=== PATIENT | male | born 1960 | race Caucasian/White ===

== ENCOUNTER 2023-10-24 20:36 | Inpatient (IN) | payer BC, SELFPAY ==
--- NOTE | ~2023-10-24 | CT_ITS ---
Examination: CT GI bleed abdomen and pelvis without and with contrast. Clinical indications: Red blood per rectum. Correlation: CT abdomen and pelvis 2006. TECHNIQUE: 5 mm thin axial images of abdomen pelvis were obtained without and with IV however mL Omnipaque 350. To be delayed images were obtained through the abdomen and pelvis. This CT examination was performed using dose optimization technique as appropriate, variously including the following: Automated exposure control Adjustment of MA and/or KV according to patient size(this includes techniques or standardized protocols for targeted exams where dose is matched to indication/reason for exam; extremities or head. Use of iterative reconstruction techniques. FINDINGS: Lung bases: There is small hiatal hernia. Mild atelectatic changes seen in the right middle lobe. The lung bases are clear. Liver, ducts and gallbladder: The liver is homogeneous in density, normal size and contour. No focal lesion or intrahepatic ductal dilatation seen. The gallbladder has been surgically removed. Spleen: Unremarkable. Pancreas: Unremarkable. Adrenal glands: Unremarkable. Kidneys and ureter: Both kidney nephrograms are symmetrical in size and configuration. No radiopaque renal calculi or hydronephrosis seen. There is a nonenhancing 1.8 cm cyst lower pole right kidney. Bladder: Unremarkable. GI tract: There is diffuse colonic diverticulosis, scattered stool and gas without obstruction or diverticulitis. The small bowel loops are normal caliber. Appendix is normal caliber. There is no abnormal intraluminal contrast extravasation seen in the colon or small bowel loops to suspect bleed. No free air or free fluid seen. Abdominal wall: Unremarkable. Pelvis: There is mild enlarged prostate gland with central gland calcification. No abnormal pelvic or inguinal lymph nodes seen. Osseous structures: Mild degenerative disc changes with vacuum disc phenomena L5-S1 disc level. CT/CT gi bleed abd pel wo/w IVcon IMPRESSION: 1. No abnormal intraluminal contrast extravasation seen to suspect any GI bleed. 2. Diffuse colonic diverticulosis without diverticulitis. 3. Cholecystectomy changes. 4. Small hiatal hernia.
[2023-10-24 20:45] VITALS: BP 148/86; PULSE 85; RESP 18; TEMP 36.6; O2SAT 97; BMI 28.6
[2023-10-24 21:01] VITALS: BP 138/85; PULSE 86; RESP 16; TEMP 36.8; O2SAT 94
[2023-10-24 21:10] LABS: MANUAL DIFF FLAG NO
[2023-10-24 21:11] LABS: Basophils Percent Auto 0.5 % (0-2); Eosinophils Absolute Auto 0.1 X10*3/uL (0.0-0.4); Eosinophils Percent Auto 1.7 % (0-4); Hematocrit 46.3 % (42.0-52.0); Hemoglobin 16.1 g/dl (14.0-18.0); Imm Gran Abs Auto 0.04 X10*3/uL (0.00-0.03); Imm Gran Pct Auto 0.5 % (0.0-0.4); Lymphocytes Absolute Auto 2.4 X10*3/uL (1.2-4.9); Lymphocytes Percent Auto 28.9 % (20-40); Mean Corpuscular HGB Conc 34.8 g/dl (31.0-36.0); Mean Corpuscular Hemoglobin 30.9 pg (27.0-33.0); Mean Corpuscular Volume 88.9 fL (80.0-98.0); Mean Platelet Volume 8.5 fL (9.4-12.4); Monocytes Absolute Auto 0.7 X10*3/uL (0.1-1.2); Monocytes Percent Auto 8.1 % (2-11); Neutrophils Absolute Auto 4.9 x10*3/uL (2.0-8.3); Neutrophils Percent Auto 60.3 % (45-73); Platelet Count 180 X10*3/uL (160-400); Red Blood Count 5.21 X10*6/uL (4.60-5.80); Red Cell Distribution Width 12.1 % (11.0-16.0); White Blood Count 8.2 X10*3/uL (4.8-10.8)
--- NOTE | 2023-10-24 21:13 | PC.NURSE ---
Pt ca&ox4, no signs of distress 2/10 LLQ pain onset x1 hour. Pain aggravated by palpation Pt reports blood tinged when wiping and small amount of occult blood in the toilet. Pts family at bedside. Pts family reports pt was diagnosed with diverticulitis Familial hx of colon cancer (pts sister) Plan of care ongoing.
--- NOTE | 2023-10-24 21:24 | ED_ITS ---
HPI - GI Bleed General Chief complaint: GI Bleed Stated complaint: rectal bleeding,abd pain Time Seen by Provider: 10/24/23 21:21 Source: patient Mode of arrival: ambulatory Limitations: no limitations History of Present Illness HPI Narrative: 62-year-old male who presents emergency department for evaluation of bright red blood per rectum. The patient states he does have a history of hemorrhoids and had 3 hemorrhoidectomies. He states that he has been constipated recently and has been using MiraLax. He states that this evening he felt a wet sensation in his rectal area and when he wiped he noted bright red blood. He states that he is also developed pain in his lower abdomen which she describes as a hfbp-su-rcfasnrn dull ache. He does have a history of diverticulosis but no diverticulitis. Patient's symptoms started approximately 1-1/2 hours prior to coming to the emergency department. He states that sister who was 67 years old currently has colon cancer and is being treated. Patient does take diclofenac and aspirin. 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 Surgical history cholecystectomy, umbilical herni repair, hemorrhoidectomy x3. Social history: The patient denies tobacco use. He drinks alcohol once a week. He denies drug use. Social History Social History Smoked in Last 30 Days: No Use of substances other than those prescribed or required for medical reasons: No Advance Directives: No Advance Directives Information Provided: No Physical Exam 2 Vital Signs: Vital Signs: Last Vital Signs Temp 98.3 F 10/24/23 21:01 Pulse 86 10/24/23 21:01 Resp 16 10/24/23 21:01 BP 138/85 10/24/23 21:01 Pulse Ox 94 10/24/23 21:01 O2 Del Method Room Air 10/24/23 21:01 BMI result Body Mass Index 28.6 Vital signs were normal Exam: General: Awake, alert in no distress Head: Normocephalic, atraumatic EENT: PERRL, Lids normal, sclera normal, conjunctiva normal, nose normal , ears normal, throat without erythema or exudates Neck: Supple, no adenopathy Lung: breath sounds symmetric, no wheezing, rales or rhonchi Chest: symmetric movement, nontender Heart: regular rate and rhythm, normal S1, S2 no murmurs or rubs Abdomen: Soft, normoactive bowel sounds, mild to moderate right lower and left lower quadrant tenderness, no rebound, no voluntary or involuntary guarding Rectal: Dark red blood per rectum, no external hemorrhoids, no internal hemorrhoids on digital exam, no rectal masses on digital exam Back: no vertebral tenderness, no CVAT Extremities: no deformities, moves all extremities symmetrically Neuro: Awake, alert, oriented, normal speech, cranial nerves intact, moves all extremities symmetrically Psych: Pleasant, cooperative Medications Administered Discontinued Medications Generic Name Dose Route Start Last Admin Trade Name Freq PRN Reason Stop Dose Admin Sodium Chloride 1,000 mls @ 999 mls/hr 10/24/23 21:53 10/24/23 22:11 Ns IV 10/24/23 22:53 999 mls/hr .Q1H1M STA Administration Iohexol 100 ml 10/24/23 22:21 10/24/23 22:22 Iohexol 350 Mg/Ml 100 Ml Infus..Btl IV 10/24/23 22:22 80 ml ONCE ONE Administration Medical Decision Making Medical Decision Making MDM Narrative: 8o-year-old male with a history diabetes mellitus, brought the edge of cyst, stroke 14 years ago, diverticulosis, cholecystectomy, umbilical herniorrhaphy, hemorrhoidectomy who presents emergency department for evaluation of sudden onset rectal bleeding proximally 1-1/2 hours prior to coming to the emergency department and lower abdominal pain. Vital signs were normal. Exam did reveal lower abdominal tenderness and rectal exam did reveal dark red blood. Differential diagnosis: ?Includes but is not limited to diverticulitis, diverticular bleed, polyp bleed, AVM bleed, hemorrhoid bleed, colon cancer Following evaluation was ordered: CBC, CMP, liver panel, occult stool test, type and screen Patient was initially treated with the following: Normal saline x1 L Course: 00:12 My interpretation patient's laboratory evaluation is as follows: WBC normal 8200. H&H normal 16 and 46.3 with a normal platelet count of a 362938. BUN elevated 22 creatinine of 1.13. Bilirubin elevated 1.1, direct bilirubin normal 0.4. ALT elevated 44. Occult stool was positive. CT scan of the abdomen pelvis GI bleed protocol did not reveal any active bleeding but did reveal diverticulosis with no diverticulitis. Given the dark red blood on rectal exam I am concerned that the patient may have a significant lower GI bleed most likely secondary to diverticulosis. I did discuss the patient's presentation with the covering hospitalist, Dr. Stanton and the patient will be admitted for further management. The patient will have a repeat 4 hour H&H at 01:00 hours. Admission/Observation Consideration of admission/observation: Escalation of care including admission/observation considered Lab Data 10/24/23 20:52 10/24/23 20:52 Labs: Lab Results 10/24/23 10/24/23 Range/Units 20:52 22:05 WBC 8.2 (4.8-10.8) X10*3/uL RBC 5.21 (4.60-5.80) X10*6/uL Hgb 16.1 (14.0-18.0) g/dl Hct 46.3 (42.0-52.0) % MCV 88.9 (80.0-98.0) fL MCH 30.9 (27.0-33.0) pg MCHC 34.8 (31.0-36.0) g/dl RDW 12.1 (11.0-16.0) % Plt Count 180 (160-400) X10*3/uL MPV 8.5 L (9.4-12.4) fL Immature Gran % (Auto) 0.5 H (0.0-0.4) % Neut % (Auto) 60.3 (45-73) % Lymph % (Auto) 28.9 (20-40) % [place] % (Auto) 8.1 (2-11) % Eos % (Auto) 1.7 (0-4) % Baso % (Auto) 0.5 (0-2) % Lymph # (Auto) 2.4 (1.2-4.9) X10*3/uL [place] # (Auto) 0.7 (0.1-1.2) X10*3/uL Eos # (Auto) 0.1 (0.0-0.4) X10*3/uL Baso # (Auto) 0.0 (0.0-0.2) X10*3/uL Abs Immat Gran (auto) 0.04 H (0.00-0.03) X10*3/uL Absolute Neuts (auto) 4.9 (2.0-8.3) x10*3/uL Absolute Nucleated RBC 0.000 (0.0-0.012) X10*3/uL Nucleated RBC % (auto) 0.0 (0.0-0.2) /100WBC Sodium 139 (135-145) mmol/L Potassium 4.0 (3.3-5.1) mmol/L Chloride 107 (96-108) mmol/L Carbon Dioxide 23 (22-29) mmol/L Anion Gap 13 (12-20) BUN 22 H (9-16) mg/dL Creatinine 1.13 (0.5-1.4) mg/dL Estim Creat Clear Calc 78.6 Estimated GFR > 60 Random Glucose 101 (60-115) mg/dL Calcium 8.8 (8.4-10.2) mg/dL Total Bilirubin 1.1 H (0.0-1.0) mg/dL Direct Bilirubin 0.4 (0.0-0.5) mg/dL AST 24 (5-37) U/L ALT 44 H (0-40) U/L Alkaline Phosphatase 75 (39-117) U/L Total Protein 7.0 (6.5-8.0) g/dL Albumin 4.4 (3.5-5.0) g/dL Stool Occult Blood POSITIVE (NEGATIVE) Blood Type A Positive Antibody Screen NEGATIVE Radiology Impression Discussion of test interpretation with radiology: I have reviewed the radiologist's reading. Radiologist Impression: CT gi bleed abd pel wo/w IVcon IMPRESSION: 1. No abnormal intraluminal contrast extravasation seen to suspect any GI bleed. 2. Diffuse colonic diverticulosis without diverticulitis. 3. Cholecystectomy changes. 4. Small hiatal hernia. Dictated By: Ata John MD Independent Historian Clinical information obtained from an independent historian. History obtained from or confirmed by: Spouse Critical Care Time Critical Care Time Critical Care Time: Yes Total Critical Care Time: 35 Attestation: Critical Care: The patient was critically ill with a high probability of imminent or life threatening deterioration. I spent greater than 30 minutes of discontinuous time evaluating the patient,delivering critical care at the bedside, discussing and evaluating pertinent data with consultants. Critical care time does not include time spent performing separately billable procedures or teaching. Total time spent performing critical care was 35 minutes.
[2023-10-24 21:26] LABS: Alanine Aminotransferase 44 U/L (0-40); Albumin Level 4.4 g/dL (3.5-5.0); Alkaline Phosphatase 75 U/L (39-117); Anion Gap 13 (12-20); Aspartate Amino Transferase 24 U/L (5-37); Bilirubin Direct 0.4 mg/dL (0.0-0.5); Bilirubin Total 1.1 mg/dL (0.0-1.0); Blood Urea Nitrogen 22 mg/dL (9-16); Calcium 8.8 mg/dL (8.4-10.2); Carbon Dioxide 23 mmol/L (22-29); Chloride 107 mmol/L (96-108); Creatinine Clr Calc Pharmacy 78.6; Estimated Glomerular Filt Rate > 60; Glucose Random 101 mg/dL (60-115); Sodium 139 mmol/L (135-145)
[2023-10-24] MEDS: 0.9 % Sodium Chloride 1,000 ML 999 ML IV (22:11)
--- NOTE | 2023-10-24 22:14 | PC.NURSE ---
Pt with ct. Plan of care ongoing.
[2023-10-24] MEDS: iohexoL 350 MG/ML 100 ML INFUS..BTL IV (22:22)
[2023-10-24 22:25] LABS: OBS Int Ctl Valid YES; OBS1 POSITIVE (NEGATIVE)
--- NOTE | 2023-10-24 22:28 | PC.NURSE ---
Pt ambulated to the restroom.
--- NOTE | 2023-10-25 00:43 | PM.IMHP ---
History of Present Illness Date of Service: 10/25/23 Chief Complaint: Blood in stools This is a 62-year-old male with pertinent history of mood disorder, BPH, history of CVA, jsn-jhculsn-ovwwdsqfr diabetes mellitus who presents to the emergency department for evaluation of bright red blood per rectum. Patient states it started around 20:00 on the day of presentation. Patient had couple of episodes since. It was painless and he only noticed when he noticed that his undergarment was wet. Patient has had 3 hemorrhoidectomies in the past and the last one was 3 years ago. Does endorse that he has been constipated lately, no fever, chills, nausea, vomiting or abdominal discomfort. Patient states he has had a colonoscopy which revealed diverticulosis. His sister is 67 years old and has been diagnosed with colon cancer. No chest discomfort, palpitations, shortness of breath, changes in urinary habits. Patient is on NSAIDs. In the emergency department, stool occult blood positive. Review of Systems Constitutional: Constitutional: Reports no additional constitutional complaints Cardiovascular: Cardiovascular: Reports no additional cardiovascular complaints Respiratory: Respiratory: Reports no additional respiratory complaints Gastrointestinal: Gastrointestinal: Reports hematochezia Genitourinary: Genitourinary: Reports no additional male genitourinary complaints [facility] Medical History (Updated 10/25/23 @ 00:48 by Will Stanton MD) History of CVA (cerebrovascular accident) BPH (benign prostatic hyperplasia) Mood disorder Surgical History (Updated 10/25/23 @ 00:48 by Will Stanton MD) H/O hemorrhoidectomy Social History Smoked in Last 30 Days: No Use of substances other than those prescribed or required for medical reasons: No Advance Directives: No Advance Directives Information Provided: No Meds Allergies Allergy/AdvReac Type Severity Reaction Status Date / Time No Known Allergies Allergy Verified 10/24/23 20:44 Physical Exam Vital Signs and Narrative: Vital Signs: Last Vital Signs Temp 98.3 F 10/24/23 21:01 Pulse 86 10/24/23 21:01 Resp 16 10/24/23 21:01 BP 138/85 10/24/23 21:01 Pulse Ox 94 10/24/23 21:01 O2 Del Method Room Air 10/24/23 21:01 BMI result Body Mass Index 28.6 Results Labs 10/24/23 20:52 10/24/23 20:52 Labs: Laboratory Results - last 24 hr 10/24/23 10/24/23 20:52 22:05 MCV 88.9 MCH 30.9 MCHC 34.8 RDW 12.1 Plt Count 180 MPV 8.5 L Immature Gran % (Auto) 0.5 H Neut % (Auto) 60.3 Lymph % (Auto) 28.9 [place] % (Auto) 8.1 Eos % (Auto) 1.7 Baso % (Auto) 0.5 Lymph # (Auto) 2.4 [place] # (Auto) 0.7 Eos # (Auto) 0.1 Baso # (Auto) 0.0 Abs Immat Gran (auto) 0.04 H Absolute Neuts (auto) 4.9 Absolute Nucleated RBC 0.000 Nucleated RBC % (auto) 0.0 Anion Gap 13 Estim Creat Clear Calc 78.6 Estimated GFR > 60 Random Glucose 101 Calcium 8.8 Total Bilirubin 1.1 H Direct Bilirubin 0.4 AST 24 ALT 44 H Alkaline Phosphatase 75 Total Protein 7.0 Albumin 4.4 Stool Occult Blood POSITIVE Blood Type A Positive Antibody Screen NEGATIVE Imaging Radiologist's Impressions: Impressions Abdomen/Pelvis CT 10/24/23 22:47 IMPRESSION: 1. No abnormal intraluminal contrast extravasation seen to suspect any GI bleed. 2. Diffuse colonic diverticulosis without diverticulitis. 3. Cholecystectomy changes. 4. Small hiatal hernia. Assessment and Plan (1) Bright red blood per rectum: Status: Acute Plan This is a 62-year-old male with pertinent history of mood disorder, BPH, history of CVA, fen-gzojwlo-fugexgtff diabetes mellitus who presents to the emergency department for evaluation of bright red blood per rectum. #. Painless bright red blood per rectum: Will admit patient with cardiac monitoring. Resuscitated with IV crystalloids. Closely monitor H&H. Consulted Gastroenterology, appreciate assistance. Will keep patient NPO #. Mood disorder: Continue home mood stabilizers once no longer NPO #. History of CVA: Hold antiplatelet agent #. Sje-urfrjid-mxrooqcfz diabetes mellitus: Initiating Accu-Cheks with sliding scale insulin every 6 hours Med rec pending DVT prophylaxis: SCDs Full code Admit as inpatient and will require two night minimum hospital stay for close monitoring of hemodynamics, IV crystalloid resuscitation, close monitoring of H&H (as above), which is not possible in a lesser acute setting. Specialist consult pending Quality Stroke Does the patient have a stroke diagnosis?: No VTE Prior VTE?: No VTE Risk Level:: Medical - moderate - high VTE Device Contraindication: N/A - Device Ordered VTE Drug Contraindication: Treatment Not Indicated
--- OUTSIDE RECORDS SUMMARY | 2023-10-25 00:47 | XMS_ITS | Continuity of Care Document ---
Author Name Unknown Organization [facility] Address [address] [place] [address]- Care Team Providers Care Needle Loom Tender Name Role Phone Flo LAGUNAS MD, Travis Andres Primary Care Physician Encounter [facility] [place] Date(s): 06/29/23 - 07/29/23 [facility] [address] [place] [address]- Attending Physician: AdmJesús donahue Admitting Physician: Admtr, Ar8 Referring Physician: Admtr, Ar8 Allergies, Adverse Reactions, Alerts Substance Reaction Severity Status predniSONE hives Active Immunizations Given and Recorded Vaccine Date Status Refusal Reason influenza virus vaccine, inactivated 04/29/10 Give n Hepatitis A-Hepatitis B Vaccine 1 04/29/10 Given Hepatitis A-Hepatitis B Vaccine 2 10/22/09 Given Hepatitis A-Hepatitis B Vaccine 3 09/24/09 Given tetanus/diphtheria/pertussis, acel(Tdap) 09/24/09 Given 1Admin Note: twinrix #3 2Admin Note: twimrix #2 3Admin Note: twinrix #1 Medications Albuterol 0 Refills, Maintenance Start Date: 09/24/09 Status: Ordered Amoxicillin By Mouth, Maintenance, 06/29/23 10:28:00 EST Start Date: 06/29/23 Status: Ordered aspirin 81 mg oral tablet, chewable 81 mg, 1, tablet, Daily, Refills 0, Maintenance, 10/10/20 16:19:00 EDT, Partial fill upon patient request if the prescription is for a schedule II opioid drug. Start Date: 10/10/20 Status: Ordered diclofenac sodium 50 mg oral delayed release tablet 1 tablet = 50 mg, By Mouth, 3 times a day, 0 Refills, Maintenance, 10/10/20 16:17:00 EDT, Partial fill upon patient request if the prescription is for a schedule II opioid drug. Start Date: 10/10/20 Status: Ordered Flovent HFA Inhalation, 2 times a day, 0 Refills, Maintenance Start Date: 09/24/09 Status: Ordered naproxen 500 mg oral tablet 1 tablet = 500 mg, By Mouth, 2 times a day, # 60 tablet, 0 Refills, Maintenance, 04/14/22 8:18:00 EDT, Tablet, Partial fill upon patient request if the prescription is for a schedule II opioid drug. Start Date: 04/14/22 Status: Ordered oxyCODONE 5 mg oral tablet See Instructions, PRN, 1-2 tablet By Mouth Every 4-6 hours, Refills 0, Tot. Refills 0, Maintenance,as needed for pain, 04/14/22 8:18:00 EDT, Instructions Replace Required Details, Partial fill upon patient request if the prescription is for a schedu... Start Date: 04/14/22 Status: Ordered sertraline 50 mg oral tablet 1 tablet = 50 mg, By Mouth, Daily, 0 Refills, Maintenance, 10/10/20 16:16:00 EDT, Partial fill uponpatient request if the prescription is for a schedule II opioid drug. Start Date: 10/10/20 Status: Ordered tamsulosin 0.4 mg oral capsule 0.4 mg, 1, capsule, By Mouth, Daily, Refills 0, Maintenance, 10/10/20 16:18:00 EDT, Partial fill upon patient request if the prescription is for a schedule II opioid drug. Start Date: 10/10/20 Status: Ordered Testosterone 0 Refills, Maintenance, 10/10/20 16:20:00 EDT, Partial fill upon patient request if the prescription is for a schedule II opioid drug. Start Date: 10/10/20 Status: Ordered Problem List Condition Confirmation Course Effective Dates Status Health St atus Informant Obese class I Confirmed Active Patient Care team information Care Team Personnel Name: Travis Rossi III, MD Position: Reference Physician Member Role: PCP Address: Address: [address] [place] [id number]- Care Team Related Persons Name: MICKEY CONNOLLY Address: home [address] [place] [address]
--- OUTSIDE RECORDS SUMMARY | 2023-10-25 00:47 | XMS_ITS | Continuity of Care Document ---
Author Name Unknown Organization [facility] Address [address] [place] [address] [address] [place] [address]- Care Team Providers Care Ep Tech Name Role Phone Travis Rossi III, MD Primary Care Physician Encounter [facility] [place] Date(s): 11/26/20 - 12/26/[address] [place] [address]- Attending Physician: Jesús Townsend Admitting Physician: AdmtrJesús Referring Physician: Admtr, Ar8 Allergies, Adverse Reactions, [...] Refills, Maintenance Start Date: 09/24/09 Status: Ordered aspirin 81 mg oral tablet, chewable 81 mg, 1, tablet, Daily, Refills 0, Maintenance, 10/10/20 16:19:00 EDT, Partial fill upon patient request if the prescription is for a schedule II opioid drug. Start Date: 10/10/20 Status: Ordered chloroquine 500 mg oral tablet 1 tablet = 500 mg, By Mouth, Every week, begin1 week prior to travel in [facility] area, take weeklyand for 4 weeks after leaving [facility] area, # 6 tablet, 0 Refills, Maintenance Start Date: 09/24/09 Status: Ordered Cipro 500 mg oral tablet 1 tablet = 500 mg, By Mouth, Every 12 hours, for severe diarrhea, # 6 tablet, 0 Refills, Maintenance Start Date: 09/24/09 Stop Date: 09/27/09 Status: Ordered Colace sodium 100 mg oral capsule 100 mg, 1, capsule, By Mouth, 2 times a day, PRN, # 60 capsule, Refills 6, Tot. Refills 6, Maintenance, for constipation, 10/16/20 10:57:00 EDT, Route to Pharmacy Electronically, [id number], Partial fill upon patient request if the pr... Start Date: 10/16/20 Stop Date: 05/14/21 Status: Ordered diclofenac sodium 50 mg oral delayed release tablet 1 tablet = 50 mg, By Mouth, 3 times a day, 0 Refills, Maintenance, 10/10/20 16:17:00 EDT, Partial fill upon patient request if the prescription is for a schedule II opioid drug. Start Date: 10/10/20 Status: Ordered Flovent HFA Inhalation, 2 times a day, 0 Refills, Maintenance Start Date: 09/24/09 Status: Ordered Cari Move Free 0 Refills, Maintenance, 10/10/20 16:18:00 EDT, Partial fill upon patient request if the prescription is for a schedule II opioid drug. Start Date: 10/10/20 Status: Ordered sertraline 50 mg oral tablet [...] opioid drug. Start Date: 10/10/20 Status: Ordered Valium 5 mg oral tablet 5 mg, 1, tablet, By Mouth, Every 8 hours, PRN, 1 TABLET EVERY 8 HOURS FOR ANAL SPASM DO NOT TAKE ATTHE SAME TIME OXYCODONE, # 42 tablet, Refills 0, Tot. Refills 0, Maintenance, Spasm, 10/16/20 10:57:00 EDT, Route to Pharmacy Electronically, [facility]... Start Date: 10/16/20 Stop Date: 10/30/20 Status: Ordered
--- OUTSIDE RECORDS SUMMARY | 2023-10-25 00:47 | XMS_ITS | Continuity of Care Document ---
Author Name Unknown Organization [facility] Address [address] [place] [address] [address] [place] [address]- Care Team Providers Care Radio Technician Name Role Phone Flo LAGUNAS MD, Travis Andres Primary Care Physician [phone] Encounter [facility] [place] Date(s): 08/21/20 - 09/26/[address] [place] [address]- Attending Physician: Denise Ybarra MD Referring Physician: Travis Rossi III, MD Allergies, Adverse Reactions, Alerts Substance Reaction Severity [...] Refills, Maintenance Start Date: 09/24/09 Status: Ordered chloroquine 500 mg oral tablet 1 tablet = 500 mg, By Mouth, Every week, begin1 week prior to travel [place] [facility], take weeklyand for [address] [facility], # 6 tablet, 0 Refills, Maintenance Start Date: 09/24/09 Status: Ordered Cipro 500 mg oral tablet 1 tablet = 500 mg, By Mouth, Every 12 hours, for severe diarrhea, # 6 tablet, 0 Refills, Maintenance Start Date: 09/24/09 Stop Date: 09/27/09 Status: Ordered Flovent HFA Inhalation, 2 times a day, 0 Refills, Maintenance Start Date: 09/24/09 Status: Ordered
--- OUTSIDE RECORDS SUMMARY | 2023-10-25 00:47 | XMS_ITS | Continuity of Care Document ---
Author Name Unknown Organization [facility] Address [address] [place] [address] [address] [place] [address]- Care Team Providers Care Sales Operations Consultant Name Role Phone Flo LAGUNAS MD, Travis Andres Primary Care Physician Encounter [facility] [place] [facility] [id number] Date(s): 10/25/20 - 01/12/[address] [place] [address]- Attending Physician: Denise Ybarra MD Allergies, Adverse Reactions, Alerts Substance Reaction [...] week, begin1 week prior [place], take weeklyand for 4 [place] after [place], # 6 tablet, 0 Refills, Maintenance [...] 10/16/20 10:57:00 EDT, Route to Pharmacy Electronically, [facility][id number], Partial fill upon patient request if the [...]
--- OUTSIDE RECORDS SUMMARY | 2023-10-25 00:47 | XMS_ITS | Continuity of Care Document ---
Author Name Unknown Organization [facility] Address [address] [place] [address] [address] [place] [address]- Care Team Providers Care Rn Staff Name Role Phone Travis Rossi III, MD Primary Care Physician [phone] [place] [facility] Date(s): 08/21/20 - 08/28/[address] [place], [place] [address] Encounter Diagnosis Weyhmpi-bl-[id number](Discharge Diagnosis) - 08/21/20 Attending Physician: Driss GOMEZ, Liudmila Andres Referring Physician: Travis Rossi III, MD Allergies, [...] week, begin1 [place] to [place] [place], take weeklyand for [address] [facility] area, # 6 tablet, 0 Refills, Maintenance Start Date: 09/24/09 Status: Ordered Cipro 500 mg oral tablet 1 tablet = 500 mg, By Mouth, Every 12 hours, for severe diarrhea, # 6 tablet, 0 Refills, Maintenance Start Date: 09/24/09 Stop Date: 09/27/09 Status: Ordered Flovent HFA Inhalation, 2 times a day, 0 Refills, Maintenance Start Date: 09/24/09 Status: Ordered Problem List Diagnosis Diagnosis Type Effective Dates Health Status Cl inical Service Informant Sjzrixe-yt-[id number] Discharge Diagnosis 08/21/20
--- OUTSIDE RECORDS SUMMARY | 2023-10-25 00:47 | XMS_ITS | Continuity of Care Document ---
Author Name Unknown Organization [facility] ter Address [address] [place] [address]- Care Team Providers Care Channel Marketing Manager Name Role Phone Flo LAGUNAS MD, Travis Andres Primary Care Physician Encounter [facility] Date(s): 10/16/20 - 10/16/[address] [address]- Discharge Disposition: A-D/C Home Attending Physician: Denise Ybarra MD Admitting Physician: Denise Ybarra MD Referring Physician: Denise Ybarra MD Allergies, Adverse Reactions, [...] week, begin1 week prior to travel in [facility] area, take weeklyand for 4 weeks after leaving [facility] area, # 6 tablet, 0 Refills, [...] 10/16/20 10:57:00 EDT, Route to Pharmacy Electronically, [facility][id number], Partial fill upon patient request if the [...] Refills, Maintenance Start Date: 09/24/09 Status: Ordered oxyCODONE 5 mg oral tablet 5 mg, 1, tablet, By Mouth, Every 6 hours, PRN, for 7 days, # 28 tablet, Refills 0, Tot. Refills 0, Acute 10/23/20 10:57:00 EDT, post op,pain, moderate, 10/16/20 10:57:00 EDT, Route to Pharmacy Electronically, [facility] #[id number], Partial fill... Start Date: 10/16/20 Stop Date: 10/23/20 Status: Ordered Cari Move Free 0 Refills, [...] 10/16/20 10:57:00 EDT, Route to Pharmacy Electronically, [facility] Start Date: 10/16/20 Stop Date: 10/30/20 Status: Ordered Vital Signs Most recent to oldest [Reference Range]: 1 2 3 Height 175 cm (10/16/20 10:07 AM) 175 cm (10/10/20 4:57 PM) Weight 94.9 kg (10/16/20 10:07 AM) 93 kg (10/10/20 4:57 PM) Oxygen Saturation [94-100 %] 100 % (10/16/20 12:15 PM) 100 % (10/16/20 11:45 AM) 99 % (10/16/20 11:30 AM) Pulse Rate [55-90 bpm] 76 bpm (10/16/20 10:07 AM) Body Mass Index [18.5-24.99] 30.99 *>HHI* (10/16/20 10:07 AM) 30.37 *>HHI* (10/10/20 4:57 PM) Blood Pressure [90-138/55-84 mm Hg] 143/79mm Hg *H* (10/16/20 11:45 AM) 137/94mm Hg (10/16/20 11:30 AM) 153/100mm Hg *H* (10/16/20 11:15 AM) Respiratory Rate [16-30 br/min] 15 br/min *L* (10/16/20 11:45 AM) 15 br/min *L* (10/16/20 11:30 AM) 20 br/min (10/16/20 11:15 AM) Temperature [96.8-100.4 DegF] 97.2 DegF (10/16/20 11:07 AM) 98 DegF (10/16/20 10:07 AM) Liters per Minute 4 L/min (10/16/20 11:07 AM) Mode of Delivery (Oxygen) Room air (10/16/20 12:15 PM) Room air (10/16/20 11:45 AM) Room air (10/16/20 11:15 AM) Blood pressure sites Arm, right (10/16/20 10:07 AM) Temperature Route Temporal (10/16/20 11:07 AM) Temporal (10/16/20 10:07 AM) Dry Weight 94.9 kg (10/16/20 10:07 AM) 93 kg (10/10/20 4:57 PM) Weight Obtained Via Standing scale (10/16/20 10:07 AM) Patient/family stated (10/10/20 4:57 PM) Dry Weight Obtained Via Standing scale (10/16/20 10:07 AM) Patient/family stated (10/10/20 4:57 PM)
--- OUTSIDE RECORDS SUMMARY | 2023-10-25 00:47 | XMS_ITS | Continuity of Care Document ---
Author Name Unknown Organization [facility] ter Address [address] [place] [address]- Care Team Providers Care Barratte Operator Name Role Phone Travis Rossi III, MD Primary Care Physician [phone] [place] [facility] [place] 03/11/21 - 03/11/[address] [address]- Discharge Disposition: A-D/C Walkout Attending Physician: Not on Staff, Attending MD Admitting Physician: Not on Staff, Admitting MD Referring Physician: Not on Staff, Referring MD Allergies, Adverse Reactions, Alerts Substance Reaction [...] week, begin1 week prior to travel in [place] area, take weeklyand for 4 weeks after leaving [place] [place], # 6 tablet, 0 Refills, Maintenance [...] 10/16/20 10:57:00 EDT, [id number], Partial fill upon patient request if the [...] Date: 10/16/20 Stop Date: 10/30/20 Status: Ordered Results Radiology Reports * Exam Date Time Procedure Performing Provider Status 03/11/21 2:52 PM Chest Portable Kibe , Tanisha; Auth (Ve rified) Notes: (Chest Portable) Reason For Exam: Chest Pain;Other: RESULT: Chest Portable Chest Portable Hx of Present Illness: dx with pna yesterday by PCP, given abx, felt worse this am was tested for covid and it was positive, nasal congestion, fever Reason: Chest Pain COMPARISON: None. FINDINGS: LINES AND TUBES: None. LUNGS AND PLEURA: No focal infiltrate. No pleural effusion. No pneumothorax. HEART, MEDIASTINUM AND CHELA: Heart is normal in size. Normal upper mediastinal and hilar contour. BONES AND SOFT TISSUES: No acute abnormality. IMPRESSION: Unremarkable. I have personally reviewed the images and I agree with this report. WSN: [id number] Ordering Physician: Pravin De La Rosa Dictated By: Alfredo Givens DO Dictated Date/Time: 03/11/21 4:04 pm Reviewed By: Lavell Mazariegos MD Signed By: Lavell Mazariegos MD Signed Date/Time: 03/11/21 4:09 pm Transcribed By: ALISON Transcribed Date/Time: 03/11/21 3:05 pm Vital Signs Most recent to oldest [Reference Range]: 1 2 Oxygen Saturation [94-100 %] 99 % (03/11/21 12:50 PM) Pulse Rate [55-90 bpm] 83 bpm (03/11/21 12:50 PM) Blood Pressure [90-138/55-84 mm Hg] 138/ 74mm Hg (03/11/21 12:50 PM) Respiratory Rate [16-30 br/min] 18 br/mi n (03/11/21 12:50 PM) Temperature [96.8-100.4 DegF] 99.5 DegF (03/11/21 1:41 PM) 100.1 DegF (03/11/21 12:50 PM) Mode of Delivery (Oxygen) Room air (03/11/21 12:50 PM) Blood pressure sites Arm, left (03/11/21 12:50 PM) Temperature Route Oral (03/11/21 1:41 PM) Oral (03/11/21 12:50 PM)
--- OUTSIDE RECORDS SUMMARY | 2023-10-25 00:47 | XMS_ITS | Continuity of Care Document ---
Author Name Unknown Organization [facility] Address [address] [place] [address] [address] [place] [address]- Care Team Providers Care Music Professor Name Role Phone Travis Rossi III, MD Primary Care Physician [phone] Encounter [facility] Date(s): 08/10/20 - 09/09/20 [facility] [address] [place], [place] [address] Allergies, Adverse Reactions, Alerts Substance Reaction Severity [...] week, begin1 week prior to travel in [facility], take weeklyand for 4 weeks after leaving [facility] [place], # 6 tablet, 0 Refills, [...]
--- OUTSIDE RECORDS SUMMARY | 2023-10-25 00:47 | XMS_ITS | Continuity of Care Document ---
Author Name Unknown Organization [facility] Address [address] [place] [address]- Care Team Providers Care Director Of Collections Name Role Phone Travis Rossi III, MD Primary Care Physician Encounter [facility] Date(s): 06/29/23 - 07/06/23 [facility] [place] [address]- Encounter Diagnosis Cough(Discharge Diagnosis) - 06/29/23 Bulla of lung(Discharge Diagnosis) - 06/29/23 Attending Physician: Rebeka Rodriguez MD Referring Physician: Travis Rossi III, MD [...] atus Informant Obese class I Confirmed Active Diagnosis Diagnosis Type Effective Dates Health Status Cl inical Service Informant Cough Discharge Diagnosis 06/29/23 Bulla of lung Discharge Diagnosis 06/29/23 Vital Signs Most recent to oldest [Reference Range]: 1 Height 175.26 cm (06/29/23 10:24 AM) Oxygen Saturation [94-100 %] 100 % (06/29/23 10:24 AM) Pulse Rate [55-90 bpm] 66 bpm (06/29/23 10:24 AM) Blood Pressure [90-138/55-84 mm Hg] 150/ 81mm Hg *H* (06/29/23 10:24 AM) Respiratory Rate [16-30 br/min] 24 br/mi n (06/29/23 10:24 AM) Temperature [96.8-100.4 DegF] 97.7 DegF (06/29/23 10:24 AM) Mode of Delivery (Oxygen) Room air (06/29/23 10:24 AM) Blood pressure sites Arm, left (06/29/23 10:24 AM) Temperature Route Temporal (06/29/23 10:24 AM) Note * Christian Weaver: PERFORM, SIGN, VERIFY Event Display: Patient Education/Instruction Authored Date: [id number] [facility] *[facility] Clinical Summary Name BRITTANY CONNOLLY Age 62 Years 1960 PCP Flo LAGUNAS MD, Travis Andres PCP Visit Date 06/29/2023 09:31:00 Additional Instructions: Scheduled Appointments?? Future Appointments ?No Future Appointments Scheduled Follow-Up Instructions ?? Diagnosis Emphysema, unspecified; Cough, unspecified Medications: Please continue your medications until treatment is completed or stopped by your provider. Discuss any questions related to medications with your provider. New Medications [facility] #[id number], [address] [place] [phone], [phone] PredniSONE (predniSONE 20 mg oral tablet) 2 tab(s) Oral Daily for 5 Days. Refills: 0. Next Dose: Medications to Continue with No Changes These medications were not printed or sent to your pharmacy Albuterol Next Dose: Amoxicillin Oral. Next Dose: Aspirin (aspirin 81 mg oral tablet, chewable) 1 tab(s) Daily. Next Dose: Diclofenac (diclofenac sodium 50 mg oral delayed release tablet) 1 tab(s) Oral 3 times a day. Next Dose: Fluticasone (Flovent HFA) Inhalation twice a day. Next Dose: Naproxen (naproxen 500 mg oral tablet) 1 tab(s) Oral twice a day. Next Dose: Oxycodone (oxyCODONE 5 mg oral tablet) 1-2 tablet By Mouth Every 4-6 hours; as needed as needed forpain. Next Dose: Sertraline (sertraline 50 mg oral tablet) 1 tab(s) Oral Daily. Next Dose: Tamsulosin (tamsulosin 0.4 mg oral capsule) 1 capsule Oral Daily. Next Dose: Testosterone Next Dose: Allergy Info:?? predniSONE Medications Given This Visit Future Orders ?No future orders Vital Signs Height 175.26 cm Weight BMI Blood Pressure 150 mm Hg/81 mm Hg Temperature 97.7 DegF Pulse Rate 66 bpm Respiratory Rate 24 br/min 02 Sat Mode of Delivery 100 %/Room air You can now view a summary of your hospital visit from the comfort of your home through a free online portal called [employer]. [employer] is a website that allows you to securely view your medical information including discharge summary, medications and follow-up visits. ??You can alsosend a secure electronic message to your doctor???s office to request appointments, renew medications or just ask a question. You can enroll at [email or web address] or register during your next office visit. Disclaimer:?? The information provided is of a general nature and is intended to be used in conjunction with the recommendations and advice of your health care practitioner. ??Every effort has been made to ensure that the information provided is accurate and complete at the time it is provided to you however, as your needs change, or, as new ??information becomes available, different or additional instructions may be required. If you have questions, please consult with your primary care provider or pharmacist, as appropriate. ??This information is not intended to serve as substitution for assessment and evaluation by a qualified health care provider. If you do not have a primary care provider, you may find a [facility] provider by calling [facility] [employer] at [phone]. [facility], in keeping with [facility] guidance, no longer requires face masks for staff, patientsor visitors in most situations. Similar to time spent indoors at other locations, there is the chance that you were exposed to respiratory viruses during your time with us (such as flu or COVID-19).? If you develop symptoms concerning for a viral respiratory infection, please seek testing (and treatment if indicated) from your medical provider or home test kit. For information about the plan of care including goals and instructions for your diagnosis, please see the patient education orders section of this document. Patient Education Materials?? The content of this educational material or handout may have been modified, supplemented, or adapted from its original content and format to support your individualized medical care. Patient Care team information Care Team Personnel Name: Flo LAGUNAS MD, Travis Andres Position: Reference Physician Member Role: PCP Address: Address: [address] [place] [address]- Care Team Related Persons Name: MICKEY CONNOLLY Address: [address] [place] [address]
--- OUTSIDE RECORDS SUMMARY | 2023-10-25 00:47 | XMS_ITS | Continuity of Care Document ---
Author Name Unknown Organization [facility] Address [address] [place] [address] [address] [place] [address]- Care Team Providers Care Automatic Line Set Up Mechanic Name Role Phone Flo LAGUNAS MD, Travis Andres Primary Care Physician [phone] Encounter [facility] [id number] Date(s): 09/13/20 - 12/19/[address] [place] [address]- Attending Physician: Denise Ybarra MD Allergies, Adverse [...] 10/16/20 10:57:00 EDT, Route to Pharmacy Electronically, [facility][id number], Partial fill upon patient request if the [...]
--- OUTSIDE RECORDS SUMMARY | 2023-10-25 00:47 | XMS_ITS | Continuity of Care Document ---
Author Name Unknown Organization [facility] Address [address] [place] [address] [address] [place] [address]- Care Team Providers Care Warehouse And Receiving Supervisor Name Role Phone Travis Rossi III, MD Primary Care Physician [phone] [place] [facility] [id number] Date(s): 11/26/20 - 12/03/[address] [place] [address]- Encounter Diagnosis Chronic anal fissure(Discharge Diagnosis) - 11/26/20 Attending Physician: Denise Ybarra MD Referring Physician: [...] week, begin1 week prior to travel in [facility] area, take weeklyand for 4 weeks after leaving [facility] area, # 6 tablet, 0 Refills, Maintenance Start Date: 3/1/10 Status: Ordered Cipro 500 mg oral tablet [...] 10/16/20 10:57:00 EDT, Route to Pharmacy Electronically, [facility][id number], Partial fill upon patient request if the [...] Date: 10/16/20 Stop Date: 10/30/20 Status: Ordered Problem List Diagnosis Diagnosis Type Effective Dates Health Status Cl inical Service Informant Chronic anal fissure Discharge Diagnosis 11/26/20 Vital Signs Most recent to oldest [Reference Range]: 1 Height 175 cm (11/26/20 10:27 AM) Weight 98.6 kg (11/26/20 10:27 AM) Pulse Rate [55-90 bpm] 68 bpm (11/26/20 10:27 AM) Body Mass Index [18.5-24.99] 32.2 *>HHI* (11/26/20 10:27 AM) Blood Pressure [90-138/55-84 mm Hg] 135/ 86mm Hg (11/26/20 10:27 AM) Temperature [96.8-100.4 DegF] 98.2 DegF (11/26/20 10:27 AM) Blood pressure sites Arm, right (11/26/20 10:27 AM) Temperature Route Temporal (11/26/20 10:27 AM)
--- OUTSIDE RECORDS SUMMARY | 2023-10-25 00:47 | XMS_ITS | Continuity of Care Document ---
Author Name Unknown Organization [facility] Address [address] [place] [address] [address] [place] [address]- Care Team Providers Care French Lecturer Name Role Phone Flo LAGUNAS MD, Travis Andres Primary Care Physician [place] [facility] Date(s): 08/27/20 - 09/03/20 [facility] [address] [place], [place] [address] Attending Physician: Denise Ybarra MD Allergies, Adverse [...] week, begin1 week prior to travel in [facility], take weeklyand for 4 weeks after leaving [facility], # 6 tablet, 0 Refills, Maintenance [...]
[2023-10-25 01:10] LABS: Hematocrit 41.8 % (42.0-52.0); Hemoglobin 14.9 g/dl (14.0-18.0)
[2023-10-25 05:03] LABS: MANUAL DIFF FLAG NO
[2023-10-25 05:06] LABS: Basophils Percent Auto 0.6 % (0-2); Eosinophils Absolute Auto 0.1 X10*3/uL (0.0-0.4); Eosinophils Percent Auto 1.7 % (0-4); Hematocrit 42.1 % (42.0-52.0); Hemoglobin 14.8 g/dl (14.0-18.0); Imm Gran Abs Auto 0.02 X10*3/uL (0.00-0.03); Imm Gran Pct Auto 0.3 % (0.0-0.4); Lymphocytes Absolute Auto 1.6 X10*3/uL (1.2-4.9); Lymphocytes Percent Auto 25.7 % (20-40); Mean Corpuscular HGB Conc 35.2 g/dl (31.0-36.0); Mean Corpuscular Volume 88.1 fL (80.0-98.0); Mean Platelet Volume 8.8 fL (9.4-12.4); Monocytes Absolute Auto 0.6 X10*3/uL (0.1-1.2); Monocytes Percent Auto 9.2 % (2-11); Neutrophils Absolute Auto 3.9 x10*3/uL (2.0-8.3); Neutrophils Percent Auto 62.5 % (45-73); Platelet Count 151 X10*3/uL (160-400); Red Blood Count 4.78 X10*6/uL (4.60-5.80); Red Cell Distribution Width 12.2 % (11.0-16.0); White Blood Count 6.3 X10*3/uL (4.8-10.8)
[2023-10-25 05:24] LABS: Anion Gap 10 (12-20); Blood Urea Nitrogen 19 mg/dL (9-16); Calcium 8.1 mg/dL (8.4-10.2); Carbon Dioxide 24 mmol/L (22-29); Chloride 108 mmol/L (96-108); Creatinine Clr Calc Pharmacy 94.5; Estimated Glomerular Filt Rate > 60; Glucose Random 106 mg/dL (60-115); Sodium 138 mmol/L (135-145)
[2023-10-25 06:59] VITALS: BP 145/87; PULSE 69; RESP 12; TEMP 36.6; O2SAT 145
--- NOTE | 2023-10-25 07:19 | PC.NURSE ---
Assumed care of this patient at 0700, patient resting quietly on stretcher at this time, mildly concerned about continued passage of blood via rectum.
[2023-10-25 07:31] LABS: Glucose, Whole Blood 111 mg/dL (60-115)
[2023-10-25] MEDS: 0.9 % Sodium Chloride Flush 3 ML SYRINGE IVFLUSH ×2 (08:00→23:36)
--- NOTE | 2023-10-25 08:21 | PHA.MEDREC ---
Pharmacy Consult ? Medication Reconciliation Pharmacy has completed the medication reconciliation. Spoke with patient, patient was a proper historian.
--- NOTE | 2023-10-25 10:49 | P.EN_ITS ---
Event Note Date of Service: 10/25/23 Event Note: Day hospitalist update S: no further hematochezia no abd pain O: Temp Pulse Resp BP Pulse Ox O2 Del Method 98 F 69 12 145/87 H 145 H Room Air 10/25/23 06:59 10/25/23 06:59 10/25/23 06:59 10/25/23 06:59 10/25/23 06:59 10/25/23 06:59 Gen: in no acute distress HEENT: sclera anicteric, moist mucus membranes Neck: supple Lungs: clear to auscultation bilaterally Heart: regular rate and rhythm, no murmurs Abd: soft, non-tender, non-distended Ext: no edema Skin: warm/well-perfused Neuro: alert and oriented x3, no focal findings Psych: appropriate affect A/P: d1 62yo M with 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
--- NOTE | 2023-10-25 10:54 | PM.GICN ---
History of Present Illness Data of Consult Service Date: 10/25/23 Requesting physician: Jaspreet Balderas Primary Care Provider: Travis Rossi III, MD HPI Reason for consult: rectal bleeding 62-year-old male with pertinent history of mood disorder, BPH, history of CVA, obb-odyfrzi-kuundymin diabetes mellitus who I am seeing for assessment for rectal bleeding Patient had sudden onset rectal bleeding last night. He noted his garments were solied with blood and had several such episodes. he denied abdominal pain, no nausea, or vomiting, no fevers, chills, chest pain or SOB. He denies straining at stool and had been taking miralax for the last few months with good effect. He has hx of hemorhhoidectomy in the past and lat colonoscopy maybe 5 yrs ago which was nml per his report He had CTA which was negatve, HGB has remained stable around 14 g/dl Review of Systems Review of Systems: Constitutional : No Weight loss, No Fever, No Chills ENT/Mouth : No sore throat, No Rhinorrhea Eyes: No Swelling, No Redness Cardiovascular : No Chest Pain, No SOB, No Edema Respiratory : No Cough, No Sputum, No Wheezing Gastrointestinal : see HPI Genitourinary : NO Dysuria, No Urinary Frequency, No Hematuria, No Urgency Musculoskeletal : No joint pain, No Myalgias, No Joint Swelling Skin : No Skin Lesions, No rash Neuro : No Weakness, No Numbness, No Dizziness, No Headache Psych : No Anxiety/Panic, No Depression Heme/Lymph: No Bruising, No Lymphadenopathy Endocrine : No Polyuria, No Polydipsia All other systems reviewed and are negative. [facility] Past Medical History Medical History History of CVA (cerebrovascular accident) BPH (benign prostatic hyperplasia) Mood disorder Family History Pertinent family history: sister- CRC Surgical History Surgical History H/O hemorrhoidectomy Social History Social History Household Members: Spouse Housing: House Do you presently have visiting nurse or other home services: No Patient Tobacco Use Status: Never used Tobacco Meds Allergies Allergy/AdvReac Type Severity Reaction Status Date / Time No Known Allergies Allergy Verified 10/24/23 20:44 Active Medications: Current Medications Acetaminophen (Acetaminophen 325 Mg Tablet) 650 mg PO Q6H PRN PRN Reason: Pain, Mild (Pain Scale 1-3) Albuterol Sulfate (Albuterol Sulfate 90 Mcg 8 Gm Inhaler) 2 puff INHALE RQID PRN PRN Reason: wheezing Dextrose (Dextrose 50 % 25 Gm/50 Ml Syringe) 25 gm IVPUSH Q15M PRN; Protocol PRN Reason: per Hypoglycemia Standing Ord. Dextrose (Dextrose 50 % 25 Gm/50 Ml Syringe) 25 gm IVPUSH Q15M PRN; Protocol PRN Reason: per Hypoglycemia Standing Ord. Glucose (Glucose Gel 15 Gm Gel..Gram.) 15 gm PO Q15M PRN; Protocol PRN Reason: per Hypoglycemia Standing Ord. Insulin Human Lispro (Insulin Lispro 100 Unit/Ml 3 Ml Vial) 0 unit SUBCUT QIDACHS [facility]; Protocol Last Admin: 10/25/23 07:59 Dose: Not Given Melatonin (Melatonin 3 Mg Tablet) 6 mg PO BEDTIME PRN PRN Reason: Insomnia Ondansetron HCl (Ondansetron Hcl 4 Mg/2 Ml Vial) 4 mg IVPUSH Q8H PRN PRN Reason: Nausea and Vomiting Sertraline HCl (Sertraline Hcl 50 Mg Tablet) 50 mg PO DAILY [facility] Sodium Chloride (0.9 % Sodium Chloride Flush 3 Ml Syringe) 3 [facility] Last Admin: 10/25/23 08:00 Dose: 3 ml Tamsulosin HCl (Tamsulosin Hcl 0.4 Mg Capsule) 0.4 mg PO DAILY [facility] Home Medications Medication Instructions Recorded Confirmed Last Taken Type albuterol sulfate 90 mcg/actuation 2 puff inhalation QID PRN wheezing 10/25/23 10/25/23 Unknown History aerosol inhaler aspirin 81 mg tablet,delayed 81 mg PO DAILY 10/25/23 10/25/23 Unknown History release diclofenac sodium 50 mg 50 mg PO DAILY 10/25/23 10/25/23 Unknown History tablet,delayed release fluticasone propionate 110 2 puff inhalation BID 10/25/23 10/25/23 Unknown History mcg/actuation HFA aerosol inhaler sertraline 50 mg tablet 50 mg PO DAILY 10/25/23 10/25/23 Unknown History tamsulosin 0.4 mg capsule 0.4 mg PO DAILY 10/25/23 10/25/23 Unknown History testosterone cypionate 200 mg/mL 200 mg IM Q2W 10/25/23 10/25/23 10/12/23 History intramuscular oil tirzepatide 5 mg/0.5 mL 5 mg subcut QWEEK 10/25/23 10/25/23 10/18/23 History subcutaneous pen injector (Travis) Physical Exam Vital Signs: Vital Signs: Last Vital Signs Temp 98 F 10/25/23 06:59 Pulse 69 10/25/23 06:59 Resp 12 10/25/23 06:59 BP 145/87 H 10/25/23 06:59 Pulse Ox 145 H 10/25/23 06:59 O2 Del Method Room Air 10/25/23 06:59 BMI result Body Mass Index 28.6 EXAM: GENERAL: The patient is well developed and nontoxic. VITAL SIGNS:see workflow HEENT: Nonicteric sclerae, PERRLA, EOMI. Oropharynx clear. Moist mucous membranes. Conjunctivae appear well perfused. No thyroid mass. CHEST: Chest wall is nontender. HEART: Regular rate and rhythm without murmurs. LUNGS: Clear to auscultation bilaterally. ABDOMEN: Soft, positive bowel sounds, nontender, no organomegaly.no flank tenderness Rectal exam by ED provider-- dark blood noted per report, no lesions SKIN: No rash, no excessive bruising, petechiae, or purpura. NEUROLOGIC: Cranial nerves II-XII intact without motor/sensory deficit. Psych: normal affect Results Labs 10/25/23 04:58 10/25/23 04:58 Labs: Short CBC 10/24/23 10/25/23 10/25/23 Range/Units 20:52 01:02 04:58 WBC 8.2 6.3 (4.8-10.8) X10*3/uL Hgb 16.1 14.9 14.8 (14.0-18.0) g/dl Hct 46.3 41.8 L 42.1 (42.0-52.0) % Plt Count 180 151 L (160-400) X10*3/uL BMP 10/24/23 10/25/23 20:52 04:58 Sodium 139 138 Potassium 4.0 4.0 Chloride 107 108 Carbon Dioxide 23 24 BUN 22 H 19 H Creatinine 1.13 0.94 Calcium 8.8 8.1 L D Liver Function 10/24/23 Range/Units 20:52 Total Bilirubin 1.1 H (0.0-1.0) mg/dL Direct Bilirubin 0.4 (0.0-0.5) mg/dL AST 24 (5-37) U/L ALT 44 H (0-40) U/L Alkaline Phosphatase 75 (39-117) U/L Albumin 4.4 (3.5-5.0) g/dL Imaging CT scan - abdomen: Attestation: I personally reviewed and interpreted this imaging study as follows: (diverticulosis, no active extravasation of vlood) Assessment and Plan (1) Bright red blood per rectum: Status: Acute Plan 1/ Acute Rectal bleeding, likely hemorrhoidal, but v sudden and was not at the abthroom at time of onset, ddx: proctitis, low lying rectal or sigmoid lesion, AVM PLAN: 1/ Prep tonight , keep on clears and colonoscopy tomorrow 2/ monitor HGB q8h, transfuse if HGB < 7 g/dl, Procedures Date of Service Date of Service: 10/25/23
[2023-10-25 11:50] LABS: Glucose, Whole Blood 112 mg/dL (60-115)
[2023-10-25 13:31] VITALS: BP 139/89; PULSE 70; RESP 18; TEMP 36.1; O2SAT 97
[2023-10-25] MEDS: PEG 3350/Na Sulf,Bicarb,Cl/KCL 4,000 ML SOLN.RECON 4000 ML PO (14:39)
[2023-10-25 16:08] VITALS: BMI 28.0
[2023-10-25 16:55] LABS: Glucose, Whole Blood 90 mg/dL (60-115)
[2023-10-25 19:05] VITALS: BP 145/91; PULSE 78; RESP 18; TEMP 36.7; O2SAT 99
[2023-10-25 20:38] LABS: Hematocrit 45.8 % (42.0-52.0); Mean Corpuscular HGB Conc 34.9 g/dl (31.0-36.0); Mean Corpuscular Hemoglobin 31.1 pg (27.0-33.0); Mean Corpuscular Volume 88.9 fL (80.0-98.0); Mean Platelet Volume 8.6 fL (9.4-12.4); Platelet Count 178 X10*3/uL (160-400); Red Blood Count 5.15 X10*6/uL (4.60-5.80); Red Cell Distribution Width 12.2 % (11.0-16.0); White Blood Count 6.8 X10*3/uL (4.8-10.8)
[2023-10-25 20:39] LABS: Glucose, Whole Blood 87 mg/dL (60-115)
[2023-10-26] VITALS (7 sets, daily range): BP systolic 103–141; BP diastolic 68–92; PULSE 65–77; RESP 16–18; TEMP 36.1–36.6; O2SAT 97–98
[2023-10-26 05:51] LABS: Glucose, Whole Blood 98 mg/dL (60-115)
[2023-10-26 06:57] LABS: Glucose, Whole Blood 101 mg/dL (60-115)
[2023-10-26 07:03] LABS: Hematocrit 46.4 % (42.0-52.0); Hemoglobin 16.5 g/dl (14.0-18.0); Mean Corpuscular HGB Conc 35.6 g/dl (31.0-36.0); Mean Corpuscular Hemoglobin 31.1 pg (27.0-33.0); Mean Corpuscular Volume 87.4 fL (80.0-98.0); Mean Platelet Volume 8.8 fL (9.4-12.4); Platelet Count 164 X10*3/uL (160-400); Red Blood Count 5.31 X10*6/uL (4.60-5.80); Red Cell Distribution Width 12.6 % (11.0-16.0); White Blood Count 6.2 X10*3/uL (4.8-10.8)
[2023-10-26 07:26] LABS: Anion Gap 14 (12-20); Blood Urea Nitrogen 16 mg/dL (9-16); Calcium 8.8 mg/dL (8.4-10.2); Carbon Dioxide 27 mmol/L (22-29); Chloride 106 mmol/L (96-108); Creatinine Clr Calc Pharmacy 83.8; Estimated Glomerular Filt Rate > 60; Glucose Random 98 mg/dL (60-115); Potassium 4.2 mmol/L (3.3-5.1); Sodium 143 mmol/L (135-145)
[2023-10-26] MEDS: 0.9 % Sodium Chloride Flush 3 ML SYRINGE IVFLUSH (09:37)
--- NOTE | 2023-10-26 10:49 | HO.ANESPROP2 ---
[facility] Active Problems Active Problems: All Active Problems (Updated 10/25/23 @ 00:48 by Will Stanton MD) History of CVA (cerebrovascular accident) (Acute) BPH (benign prostatic hyperplasia) (Acute) Mood disorder (Acute) H/O hemorrhoidectomy (Acute) Bright red blood per rectum (Acute) Acute lower gastrointestinal bleeding (Acute) Past Medical History Medical History History of CVA (cerebrovascular accident) BPH (benign prostatic hyperplasia) Mood disorder Family History Family history of problems with anesthesia: No Surgical History Surgical History H/O hemorrhoidectomy History of Problems with Anesthesia: No Social History Social History Household Members: Spouse Housing: House Do you presently have visiting nurse or other home services: No Patient Tobacco Use Status: Never used Tobacco Meds Allergies Allergy/AdvReac Type Severity Reaction Status Date / Time No Known Allergies Allergy Verified 10/24/23 20:44 Active Medications: Current Medications Acetaminophen (Acetaminophen 325 Mg Tablet) 650 mg PO Q6H PRN PRN Reason: Pain, Mild (Pain Scale 1-3) Albuterol Sulfate (Albuterol Sulfate 90 Mcg 8 Gm Inhaler) 2 puff INHALE RQID PRN PRN Reason: wheezing Dextrose (Dextrose 50 % 25 Gm/50 Ml Syringe) 25 gm IVPUSH Q15M PRN; Protocol PRN Reason: per Hypoglycemia Standing Ord. Dextrose (Dextrose 50 % 25 Gm/50 Ml Syringe) 25 gm IVPUSH Q15M PRN; Protocol PRN Reason: per Hypoglycemia Standing Ord. Glucose (Glucose Gel 15 Gm Gel..Gram.) 15 gm PO Q15M PRN; Protocol PRN Reason: per Hypoglycemia Standing Ord. Insulin Human Lispro (Insulin Lispro 100 Unit/Ml 3 Ml Vial) 0 unit SUBCUT [facility]; Protocol Last Admin: 10/26/23 07:45 Dose: Not Given Melatonin (Melatonin 3 Mg Tablet) 6 mg PO BEDTIME PRN PRN Reason: Insomnia Ondansetron HCl (Ondansetron Hcl 4 Mg/2 Ml Vial) 4 mg IVPUSH Q8H PRN PRN Reason: Nausea and Vomiting Sertraline HCl (Sertraline Hcl 50 Mg Tablet) 50 mg PO DAILY [facility] Last Admin: 10/26/23 07:46 Dose: Not Given Sodium Chloride (0.9 % Sodium Chloride Flush 3 Ml Syringe) 3 ml IVFLUSH QSHIFT [facility] Last Admin: 10/26/23 09:37 Dose: 3 ml Tamsulosin HCl (Tamsulosin Hcl 0.4 Mg Capsule) 0.4 mg PO DAILY [facility] Last Admin: 10/26/23 07:46 Dose: Not Given Home Medications Medication Instructions Recorded Confirmed Last Taken Type albuterol sulfate 90 mcg/actuation 2 puff inhalation QID PRN wheezing 10/25/23 10/25/23 Unknown History aerosol inhaler aspirin 81 mg tablet,delayed 81 mg PO DAILY 10/25/23 10/25/23 Unknown History release diclofenac sodium 50 mg 50 mg PO DAILY 10/25/23 10/25/23 Unknown History tablet,delayed release fluticasone propionate 110 2 puff inhalation BID 10/25/23 10/25/23 Unknown History mcg/actuation HFA aerosol inhaler sertraline 50 mg tablet 50 mg PO DAILY 10/25/23 10/25/23 Unknown History tamsulosin 0.4 mg capsule 0.4 mg PO DAILY 10/25/23 10/25/23 Unknown History testosterone cypionate 200 mg/mL 200 mg IM Q2W 10/25/23 10/25/23 10/12/23 History intramuscular oil tirzepatide 5 mg/0.5 mL 5 mg subcut QWEEK 10/25/23 10/25/23 10/18/23 History subcutaneous pen injector (Travis) Exam Height,Weight and Vital Signs: Height 5 ft 10 in Weight 88.6 kg Last Vital Signs Temp 97.2 F 10/26/23 10:10 Pulse 65 10/26/23 10:10 Resp 18 10/26/23 10:10 BP 138/85 10/26/23 10:10 Pulse Ox 98 10/26/23 10:10 O2 Del Method Room Air 10/26/23 10:10 Pertinent Lab Results Pertinent Lab Results: Laboratory Tests 10/24/23 10/24/23 10/25/23 20:52 22:05 01:02 WBC 8.2 RBC 5.21 Hgb 16.1 14.9 Hct 46.3 41.8 L MCV 88.9 MCH 30.9 MCHC 34.8 RDW 12.1 Plt Count 180 MPV 8.5 L Immature Gran % (Auto) 0.5 H Neut % (Auto) 60.3 Lymph % (Auto) 28.9 Upson % (Auto) 8.1 Eos % (Auto) 1.7 Baso % (Auto) 0.5 Lymph # (Auto) 2.4 Upson # (Auto) 0.7 Eos # (Auto) 0.1 Baso # (Auto) 0.0 Abs Immat Gran (auto) 0.04 H Absolute Neuts (auto) 4.9 Absolute Nucleated RBC 0.000 Nucleated RBC % (auto) 0.0 Sodium 139 Potassium 4.0 Chloride 107 Carbon Dioxide 23 Anion Gap 13 BUN 22 H Creatinine 1.13 Estim Creat Clear Calc 78.6 Estimated GFR > 60 POC Glucose Random Glucose 101 Calcium 8.8 Total Bilirubin 1.1 H Direct Bilirubin 0.4 AST 24 ALT 44 H Alkaline Phosphatase 75 Total Protein 7.0 Albumin 4.4 Stool Occult Blood POSITIVE Blood Type A Positive Antibody Screen NEGATIVE 10/25/23 10/25/23 10/25/23 04:58 07:27 11:45 WBC 6.3 RBC 4.78 Hgb 14.8 Hct 42.1 MCV 88.1 MCH 31.0 MCHC 35.2 RDW 12.2 Plt Count 151 L MPV 8.8 L Immature Gran % (Auto) 0.3 Neut % (Auto) 62.5 Lymph % (Auto) 25.7 Upson % (Auto) 9.2 Eos % (Auto) 1.7 Baso % (Auto) 0.6 Lymph # (Auto) 1.6 Upson # (Auto) 0.6 Eos # (Auto) 0.1 Baso # (Auto) 0.0 Abs Immat Gran (auto) 0.02 Absolute Neuts (auto) 3.9 Absolute Nucleated RBC 0.000 Nucleated RBC % (auto) 0.0 Sodium 138 Potassium 4.0 Chloride 108 Carbon Dioxide 24 Anion Gap 10 L BUN 19 H Creatinine 0.94 Estim Creat Clear Calc 94.5 Estimated GFR > 60 POC Glucose 111 112 Random Glucose 106 Calcium 8.1 L D Total Bilirubin Direct Bilirubin AST ALT Alkaline Phosphatase Total Protein Albumin Stool Occult Blood Blood Type Antibody Screen 10/25/23 10/25/23 10/25/23 16:36 20:14 20:26 WBC 6.8 RBC 5.15 Hgb 16.0 Hct 45.8 MCV 88.9 MCH 31.1 MCHC 34.9 RDW 12.2 Plt Count 178 MPV 8.6 L Immature Gran % (Auto) Neut % (Auto) Lymph % (Auto) Upson % (Auto) Eos % (Auto) Baso % (Auto) Lymph # (Auto) Upson # (Auto) Eos # (Auto) Baso # (Auto) Abs Immat Gran (auto) Absolute Neuts (auto) Absolute Nucleated RBC 0.000 Nucleated RBC % (auto) 0.0 Sodium Potassium Chloride Carbon Dioxide Anion Gap BUN Creatinine Estim Creat Clear Calc Estimated GFR POC Glucose 90 87 Random Glucose Calcium Total Bilirubin Direct Bilirubin AST ALT Alkaline Phosphatase Total Protein Albumin Stool Occult Blood Blood Type Antibody Screen 10/26/23 10/26/23 10/26/23 05:47 06:18 06:52 WBC 6.2 RBC 5.31 Hgb 16.5 Hct 46.4 MCV 87.4 MCH 31.1 MCHC 35.6 RDW 12.6 Plt Count 164 MPV 8.8 L Immature Gran % (Auto) Neut % (Auto) Lymph % (Auto) Upson % (Auto) Eos % (Auto) Baso % (Auto) Lymph # (Auto) Upson # (Auto) Eos # (Auto) Baso # (Auto) Abs Immat Gran (auto) Absolute Neuts (auto) Absolute Nucleated RBC 0.000 Nucleated RBC % (auto) 0.0 Sodium 143 Potassium 4.2 Chloride 106 Carbon Dioxide 27 Anion Gap 14 BUN 16 Creatinine 1.05 Estim Creat Clear Calc 83.8 Estimated GFR > 60 POC Glucose 98 101 Random Glucose 98 Calcium 8.8 D Total Bilirubin Direct Bilirubin AST ALT Alkaline Phosphatase Total Protein Albumin Stool Occult Blood Blood Type Antibody Screen Airway Mallampati Class: II TM Dist: >3cm Neck ROM: Full Partial: Upper Heart: rrr Lungs: cta Assessment and Plan Assessment Anesthesia Assessment: Anesthesia Plan Discussed and Chart Reviewed Final Anesthetic Review Family History of Problems with Anesthesia: No History of Problems with Anesthesia: No NPO: Yes ASA Class: III Final Preanesthetic Review: No Changes in Pt Med Stat, Meds/Allgs Chart Reviewed and Consent Obtained/Reviewed Patient Risk: Intermediate Procedure Risk: Low Anesthetic Plan Anesthetic Plan: MAC: Disposition: Standard PACU
[2023-10-26 10:57] LABS: Glucose, Whole Blood 88 mg/dL (60-115)
--- NOTE | 2023-10-26 12:25 | P.PNGI_ITS ---
Subjective Subjective Date of Service: 10/26/23 Interval History: blood cleared up during bowel prep no abdominal pain HGB stable no nausea or vomiting, feels well and hungry Critical Care Time (minutes): 0 Physical Exam 2 Vital Signs: Vital Signs: Last Vital Signs Temp 97.2 F 10/26/23 10:10 Pulse 65 10/26/23 10:10 Resp 18 10/26/23 10:10 BP 138/85 10/26/23 10:10 Pulse Ox 98 10/26/23 10:10 O2 Del Method Room Air 10/26/23 10:10 BMI result Body Mass Index 28.0 EXAM: GENERAL: The patient is well developed and nontoxic. VITAL SIGNS:see workflow HEENT: Nonicteric sclerae, PERRLA, EOMI. Oropharynx clear. Moist mucous membranes. Conjunctivae appear well perfused. No thyroid mass. CHEST: Chest wall is nontender. HEART: Regular rate and rhythm without murmurs. LUNGS: Clear to auscultation bilaterally. ABDOMEN: Soft, positive bowel sounds, nontender, no organomegaly.no flank tenderness SKIN: No rash, no excessive bruising, petechiae, or purpura. NEUROLOGIC: Cranial nerves II-XII intact without motor/sensory deficit. Psych: normal affect Objective Data Labs 10/26/23 06:18 10/26/23 06:18 Labs: Laboratory Results - last 24 hr 10/25/23 10/25/23 10/25/23 16:36 20:14 20:26 WBC 6.8 RBC 5.15 Hgb 16.0 Hct 45.8 MCV 88.9 MCH 31.1 MCHC 34.9 RDW 12.2 Plt Count 178 MPV 8.6 L Absolute Nucleated RBC 0.000 Nucleated RBC % (auto) 0.0 Sodium Potassium Chloride Carbon Dioxide Anion Gap BUN Creatinine Estim Creat Clear Calc Estimated GFR POC Glucose 90 87 Random Glucose Calcium 10/26/23 10/26/23 10/26/23 05:47 06:18 06:52 WBC 6.2 RBC 5.31 Hgb 16.5 Hct 46.4 MCV 87.4 MCH 31.1 MCHC 35.6 RDW 12.6 Plt Count 164 MPV 8.8 L Absolute Nucleated RBC 0.000 Nucleated RBC % (auto) 0.0 Sodium 143 Potassium 4.2 Chloride 106 Carbon Dioxide 27 Anion Gap 14 BUN 16 Creatinine 1.05 Estim Creat Clear Calc 83.8 Estimated GFR > 60 POC Glucose 98 101 Random Glucose 98 Calcium 8.8 D 10/26/23 10:54 WBC RBC Hgb Hct MCV MCH MCHC RDW Plt Count MPV Absolute Nucleated RBC Nucleated RBC % (auto) Sodium Potassium Chloride Carbon Dioxide Anion Gap BUN Creatinine Estim Creat Clear Calc Estimated GFR POC Glucose 88 Random Glucose Calcium Procedures Date of Service Date of Service: 10/26/23 Progress Note: A&P Assessment and plan (1) Bright red blood per rectum: Status: Acute Plan 1/ Acute lower GIB, HGb and vitals stable, ddx: hemorrhoidal bleed, low lying rectal lesion PLAN: /1 -colonsocopy today for further assessment, seems to have resolved Time Spent With Patient Time: Total time managing care of this patient today ____ minutes. Quality Stroke Does the patient have a stroke diagnosis?: No VTE Prior VTE?: No VTE Risk Level:: Medical - moderate - high VTE Device Contraindication: N/A - Device Ordered VTE Drug Contraindication: Treatment Not Indicated
--- NOTE | 2023-10-26 12:27 | MHC.SHP ---
Pre-Procedural Eval Section A - 24 Hr Update-Section A only Date of Service: 10/26/23 The patient is an INPATIENT: Yes The patient has been examined within 24 hours of the surgical procedure. The History & Physical has been completed within 30 days and I have reviewed it.: Yes Section B - Complete if H&P > 30 days Chief Complaint: Hematochezia Allergies: Allergies Allergy/AdvReac Type Severity Reaction Status Date / Time No Known Allergies Allergy Verified 10/24/23 20:44 Plan Diagnosis/Plan: Unchanged I have reviewed the history and physical and performed a pertinent physical examination on my patient. No changes have occurred unless specified. Time Spent With Patient Time: Total time managing care of this patient today ____ minutes.
--- NOTE | 2023-10-26 12:27 | W.PM.OPN ---
Operative Note Operative Note Date of Service: 10/26/23 Narrative: Operative Information Procedure Description: Colonoscopy Indication: rectal bleeding Anesthesia: MAC COLONOSCOPY Instrument: Olympus variable stiffness pediatric scope 190L Colonoscopy Monitoring: Vital signs and clinical assessment, continuous EKG monitoring, Pulse oximetry, Carbon Dioxide monitoring and blood pressure monitoring were done throughout the procedure. Colon withdrawal time was 10 minutes. Procedure: The patient was placed in the left lateral decubitis position and pre-procedure medications were administered. After a digital rectal examination of the ano-rectum, the video colonoscope was inserted into the rectum and advanced through the colon to the cecum/TI. The colonoscope was slowly withdrawn in a retrograde panoramic fashion and the colon mucosa was carefully examined including a retroflexed view of the rectum. Findings and interventions are described below. Procedure Difficulty: easy Findings: Terminal Ileum-normal Cecum:normal Right sided retroflexion- normal Ascending Colon: normal Transverse Colon -normal Descending Colon:normal Sigmoid Colon: severe diverticulosis, with multiple tics of varying size Rectum: Retroflexion with small to medium internal hemorrhoids seen, grade I with scar tissue from prior srugery noted Anorectum - normal Intervention: none Colon preparation: [place] Bowel Preparation Scale Right colon; 2 Transverse colon: 2 Left colon; 2 (0 = Unprepared colon segment with mucosa not seen due to solid stool that cannot be cleared. 1 = Portion of mucosa of the colon segment seen, but other areas of the colon segment not well seen due to staining, residual stool and/or opaque liquid. 2 = Minor amount of residual staining, small fragments of stool and/or opaque liquid, but mucosa of colon segment seen well. 3 = Entire mucosa of colon segment seen well with no residual staining, small fragments of stool or opaque liquid) Impression and Post Procedure Diagnosis: diverticulosis internal hemorrhoids Plan: High fiber diet leaflet Avoid straining at stool, epsom salts and sitz bath, anusol supps or cream Repeat Colonoscopy in 5 years due to some areas with fair prep or earlier if clinically indicated bleed most likely hemorrhoidal, can use anusol supps or cream, and avoid constipation Above findings were reviewed with the patient and relevant handouts were provided if indicated.
--- NOTE | 2023-10-26 13:44 | MHC.CM.PN ---
Pt self-care and lives at home with his who will transport him home. No HCP at this time, declined. PCP: Dr. Travis Rossi
[2023-10-26 14:00] LABS: Glucose, Whole Blood 95 mg/dL (60-115)
[2023-10-26 16:02] LABS: Glucose, Whole Blood 199 mg/dL (60-115)
--- NOTE | 2023-10-26 16:45 | P.DS_ITS ---
DS: Providers Provider Date of Service: 10/26/23 Date of admission: 10/25/23 00:42 Date of discharge: 10/26/23 Primary care physician: Travis Rossi III, MD Consults: 10/25/23 00:50 Consult to Gastroenterology Routine Consulting Provider: Norberto Galvez Reason for consultation: lower gi bleed DS: Diagnosis Discharge Diagnosis (1) Bright red blood per rectum: Status: Acute (2) Internal hemorrhoids: Status: Acute DS: Summary Hospital Course Hospital Course: 62-year-old male with pertinent history of mood disorder, BPH, history of CVA, [id number]-[id number] diabetes mellitus who presents to the emergency department for evaluation of bright red blood per rectum. Patient states it started around 20:00 on the day of presentation. Patient had couple of episodes since. It was painless and he only noticed when he noticed that his undergarment was wet. Patient has had 3 hemorrhoidectomies in the past and the last one was 3 years ago. Does endorse that he has been constipated lately, no fever, chills, nausea, vomiting or abdominal discomfort. Patient states he has had a colonoscopy which revealed diverticulosis. His sister is 67 years old and has been diagnosed with colon cancer. No chest discomfort, palpitations, shortness of breath, changes in urinary habits. Patient is on NSAIDs. Hospital course Patient admitted to telemetry where his hemoglobin remained stable. He was seen in consultation by GI on 10/26/2023 patient underwent colonoscopy to cecum. Findings included diffuse diverticulosis and internal hemorrhoids. At this point he is tolerated diet it is medically acceptable for discharge to home. When questions he states he had passed hemorrhoid surgeries at [facility] and will follow-up with that surgeon of well as his PCP Time Attestation Discharge Coordination Time (in mins): 35 Quality: Safe Use of Opioids Does Pt have an Active Cancer Diagnosis on the Problem List?: No Quality: Stroke Does the patient have a stroke diagnosis?: No Physical Exam Vital Signs: Vital Signs: Last Vital Signs Temp 97.9 F 10/26/23 16:00 Pulse 77 10/26/23 16:00 Resp 16 10/26/23 16:00 BP 141/83 H 10/26/23 16:00 Pulse Ox 98 10/26/23 16:00 O2 Del Method Room Air 10/26/23 16:00 BMI result Body Mass Index 28.0 Const: Other: Awake alert no acute distress Resp: Other: Clear to auscultation bilaterally no rales rhonchi or wheezes Cardio: Other: No S4; positive S1-S2; no S3 murmurs rubs or gallops GI: Other: Soft nontender nondistended normoactive bowel sounds Extrem: Other: No edema bilaterally DS: Data Data Completed and Pending Labs on day of discharge: Laboratory Results - last 24 hr 10/25/23 10/25/23 10/25/23 16:36 20:14 20:26 WBC 6.8 RBC 5.15 Hgb 16.0 Hct 45.8 MCV 88.9 MCH 31.1 MCHC 34.9 RDW 12.2 Plt Count 178 MPV 8.6 L Absolute Nucleated RBC 0.000 Nucleated RBC % (auto) 0.0 Sodium Potassium Chloride Carbon Dioxide Anion Gap BUN Creatinine Estim Creat Clear Calc Estimated GFR POC Glucose 90 87 Random Glucose Calcium 10/26/23 10/26/23 10/26/23 05:47 06:18 06:52 WBC 6.2 RBC 5.31 Hgb 16.5 Hct 46.4 MCV 87.4 MCH 31.1 MCHC 35.6 RDW 12.6 Plt Count 164 MPV 8.8 L Absolute Nucleated RBC 0.000 Nucleated RBC % (auto) 0.0 Sodium 143 Potassium 4.2 Chloride 106 Carbon Dioxide 27 Anion Gap 14 BUN 16 Creatinine 1.05 Estim Creat Clear Calc 83.8 Estimated GFR > 60 POC Glucose 98 101 Random Glucose 98 Calcium 8.8 D 10/26/23 10/26/23 10/26/23 10:54 13:57 15:49 WBC RBC Hgb Hct MCV MCH MCHC RDW Plt Count MPV Absolute Nucleated RBC Nucleated RBC % (auto) Sodium Potassium Chloride Carbon Dioxide Anion Gap BUN Creatinine Estim Creat Clear Calc Estimated GFR POC Glucose 88 95 199 H Random Glucose Calcium Discharge Plan Discharge Anticipated Discharge Date/Time: 10/26/23 16:43 Patient Disposition: Home, Self-Care Discharge Diagnosis: Internal hemorrhoids Referrals: Travis Rossi III, MD [Primary Care Provider] - 1 Week Discharge Medications: Continued aspirin 81 mg Tablet,Delayed Release (Dr/Ec) 81 mg PO DAILY tamsulosin 0.4 mg capsule 0.4 mg PO DAILY diclofenac sodium 50 mg tablet,delayed release (DR/EC) 50 mg PO DAILY testosterone cypionate 200 mg/mL oil 200 mg IM Q2W albuterol sulfate 90 mcg/actuation HFA aerosol inhaler 2 puff inhalation QID PRN (Reason: wheezing) sertraline 50 mg tablet 50 mg PO DAILY fluticasone propionate 110 mcg/actuation HFA aerosol inhaler 2 puff inhalation BID Mounjaro 5 mg/0.5 mL pen injector 5 mg subcut QWEEK Discharge Orders: Discharge Order (Routine); Ordered 10/26/23 Ordered By: Ronny Daley Diet: Advance to usual diet Activity on Discharge: As tolerated Stand Alone Forms: Patient Portal Discharge page Care Plan Goals: Resume all medicines as taken prior to the hospital Health Concerns: Your colonoscopy demonstrate the source of your bleeding was internal hemorrhoid s. Follow up with your PCP and they can decide further workup or treatment if reoccurrence Plan of Treatment: Follow-up with PCP next available Assessment: See discharge summary
== END 2023-10-26 17:18 | disposition home or self-care (01) | DRG 244 ==
LOC: HO.ED 10-25 00:16 → HO.EDOVER 10-25 05:37 → HO.IMC 10-25 13:46
PROVIDERS: Family Medicine; Internal Medicine Gastroenterology; Admitting Provider Student in an Organized Health Care Education/Training Program; Emergency Provider Emergency Medicine Emergency Medical Services; PCP Internal Medicine; Visit Provider Hospitalist
PROC: 0DJD8ZZ Inspection of Lower Intestinal Tract, Via Natural or Artificial Opening Endoscopic (ICD-10-PCS; CPT 45378; principal; 2023-10-26 12:00)
DX: K57.31 Diverticulosis of large intestine without perforation or abscess with bleeding (principal); E11.9 Type 2 diabetes mellitus without complications; F39 Unspecified mood [affective] disorder; K64.0 First degree hemorrhoids; N40.0 Benign prostatic hyperplasia without lower urinary tract symptoms; J47.9 Bronchiectasis, uncomplicated; Z80.0 Family history of malignant neoplasm of digestive organs; Z86.73 Personal history of transient ischemic attack (TIA), and cerebral infarction without residual deficits; Z79.51 Long term (current) use of inhaled steroids; Z79.82 Long term (current) use of aspirin; Z79.899 Other long term (current) drug therapy
CPT/HCPCS: 36415; 74178; 80048; 80053; 82248; 82272; 82947; 85014; 85018; 85025; 85027; 86850; 86900; 86901; 99285; J2704; Q9967

== ENCOUNTER → 2023-10-25 00:42 | Outpatient (BNV) | payer BC, SELFPAY | PROVIDERS: Admitting Provider Student in an Organized Health Care Education/Training Program; Emergency Provider Emergency Medicine Emergency Medical Services; PCP Internal Medicine; Visit Provider Internal Medicine Gastroenterology | DX: K62.5 Hemorrhage of anus and rectum (principal); K57.30 Diverticulosis of large intestine without perforation or abscess without bleeding; K64.0 First degree hemorrhoids | CPT/HCPCS: 45378; 99223; 99232 ==

== ENCOUNTER → 2023-10-25 00:42 | Outpatient (BNV) | payer BC, SELFPAY | PROVIDERS: Admitting Provider Student in an Organized Health Care Education/Training Program; Emergency Provider Emergency Medicine Emergency Medical Services; PCP Internal Medicine; Visit Provider Student in an Organized Health Care Education/Training Program | DX: K62.5 Hemorrhage of anus and rectum (principal); K64.8 Other hemorrhoids | CPT/HCPCS: 99222; 99239; 99499 ==